=== PATIENT | female | born 1970 | race Caucasian/White ===

== ENCOUNTER 2016-04-25 13:16 | Inpatient (IN) | payer MEDICARE, MEDICAID ==
[2016-04-25] MEDS ORDERED: ASPIRIN TABLET 325 MG TAB PO ONE (13:45)
[2016-04-25] MEDS ORDERED: SODIUM CHLORIDE 0.9% (FLUSH) 10 ML SYG IV PRN ×2 (13:45→16:57)
--- NOTE | 2016-04-25 15:24 | CT ---
Study: CT of the Head. Indication: Transient level of consciousness. Technique: Axial CT images of the head were acquired without intravenous contrast. Comparison: None. Findings: Examination is mildly motion degraded. No CT evidence of acute ischemia, acute hemorrhage, mass, mass effect, midline shift, or extra-axial fluid collection. Ventricles are normal in configuration without hydrocephalus. Slightly age advanced global parenchymal volume loss noted. Paranasal sinuses are adequately aerated. Mastoid air cells are adequately aerated. Osseous structures and soft tissues are unremarkable. Impression: 1. No CT evidence of acute intracranial abnormality. 2. Slight age advanced global parenchymal volume loss. 3. Mild motion degradation. Electronically signed by: Blayne Cooney MD 04/25/2016 15:22
--- NOTE | 2016-04-25 15:24 | RAD ---
Study: Single Frontal View of the Chest. Indication:Transient level of consciousness Comparison: May 07, 2015. Findings: Heart size normal. Lungs clear. No acute osseous abnormality. Electronically signed by: Blayne Cooney MD 04/25/2016 15:23
--- NOTE | 2016-04-25 16:05 | ED.PDOC ---
History of Present Illness - General Chief Complaint: Neuro Symptoms/Deficits Stated Complaint: ALTERED MENTAL STATUS Time Seen by Provider: 04/25/16 13:44 Source: other - EMPLOYEE AT PTS JOB Exam Limitations: other - UNINTELIGIBLE SPEECH Additional Information: PT WAS SENT TO ED FOR EVALUATION FROM HER PLACE OF WORK AT [employer]. PT WAS FOUND TO BE ALTERED ACCORDING TO WHO CALLED PRIOR TO PTS ARRIVAL. PT REPORTEDLY HAD A FACIAL DROOP AND DECREASED SUPERVISOR FIBER LOCKING ON RIGHT. CO-WORKER STATES THAT PT HAS EXHIBITED SIMILAR SYMPTOMS IN THE PAST WHEN [place]KOTE LEVELS FOR ABNORMAL. PT IS UNABLE TO GIVE ANY RELIABLE INFO REGARDING HPI - History of Present Illness Timing/Duration: unsure Severity: mild Improving Factors: nothing Worsening Factors: nothing Associated Symptoms: denies symptoms Allergies/Adverse Reactions: Allergies Azithromycin [From Zithromax] Allergy (Verified 09/26/14 16:38) Cephalexin [From Keflex] Allergy (Verified 09/26/14 16:38) Ciprofloxacin [From Cipro] Allergy (Verified 09/26/14 16:38) Ketorolac Allergy (Verified 09/26/14 16:38) Nalbuphine Allergy (Verified 09/26/14 16:38) Penicillins Allergy (Verified 08/05/15 18:07) Zebulon Allergy (Verified 09/26/14 16:38) Sulfamethoxazole w/Trimethoprim [From Bactrim] Allergy (Verified 09/26/14 16:38) Home Medications: Ambulatory Orders Butorphanol Tartrate Inj [Stadol Inj] 2 mg IM .2 PER WEEK ONLY PRN 08/05/15 Levothyroxine Sodium [Synthroid] 50 mcg PO DAILY 08/05/15 Lorazepam [Ativan] 0.5 mg PO BID PRN 08/05/15 Multiple Vitamins W/ Minerals [Multivital] 1 tab PO DAILY 08/05/15 Polyethylene Glycol 3350 [Miralax] 17 gm PO DAILY PRN 08/05/15 Promethazine HCl Inj [Phenergan Inj] 25 mg IM Q6H PRN 08/05/15 Topiramate [Topamax] 200 mg PO BID 08/05/15 Trazodone HCl 100 mg PO BEDTIME PRN 08/05/15 tiZANidine [Zanaflex] 4 mg PO Q6H PRN 08/05/15 Divalproex Sodium ER [Depakote ER] 2 ea PO BEDTIME 01/01/16 Estropipate 0.75 mg PO DAILY 01/01/16 Gabapentin 100 mg PO TID 01/01/16 Ondansetron HCl 4 mg PO Q6H PRN 01/01/16 Quetiapine Fumarate [Seroquel] 300 mg PO BEDTIME 01/01/16 Sennosides [Senokot] 8.6 mg PO BID PRN 01/01/16 Acetaminophen [Pain Relief Extra Strengt] 1,000 mg PO Q6H PRN 04/25/16 Alum & Mag Hydrox-Simethicone [Mayelin-Lanta] 30 ml PO DAILY PRN 04/25/16 Edplvsmqzo-Kicpgjershhhy-Zgwrn [Fioricet] 1 cap PO Q6H PRN 04/25/16 Dextromethorphan-Guaifenesin [Mayelin-Tussin Dm] 10 ml PO Q4H PRN 04/25/16 Docusate Sodium 200 mg PO DAILY 04/25/16 Mccormick-3 Fatty Acids [Fish Oil] 3,000 mg PO DAILY 04/25/16 Tramadol HCl 1 - 2 mg PO TID PRN 04/25/16 Review of Systems - Review of Systems Constitutional: States: see HPI EENTM: States: see HPI Respiratory: States: see HPI Cardiology: States: see HPI Gastrointestinal/Abdominal: States: see HPI Genitourinary: States: see HPI Musculoskeletal: States: see HPI Skin: States: see HPI Neurological: States: see HPI Endocrine: States: see HPI Hematologic/Lymphatic: States: see HPI Past Medical History (General) - Patient Medical History Hx Seizures: Yes - Takes Depakote for Seizures Hx Stroke: No Hx Dementia: No Hx Asthma: No Hx of COPD: No Hx Cardiac Disorders: No Hx Congestive Heart Failure: No Hx Pacemaker: No Hx Hypertension: No Hx Thyroid Disease: Yes Hx Diabetes: No Hx Gastroesophageal Reflux: No Hx Renal Disease: No Hx Cancer: No Hx of HIV: No Hx Hepatitis C: No Hx MRSA: No - Vaccination History Hx Tetanus, Diphtheria Vaccination: Yes Hx Influenza Vaccination: Yes Hx Pneumococcal Vaccination: Yes Immunizations Up to Date: Yes Immunizations Comment: Patient resides in a [facility] - Immunizations are up to date - Social History Hx Tobacco Use: No Hx Chewing Tobacco Use: No Hx Alcohol Use: No Hx Substance Use: No Hx Substance Use Treatment: No Hx Depression: Yes Feels Threatened In Home Enviroment: No Feels Threatened In a Relationship: No Hx Physical Abuse: No Hx Emotional Abuse: No Hx Suspected Abuse: No - Activities of Daily Living [facility]isted Living (if applicable):: [facility] Agency (if applicable):: None - Female History Patient is a Female of Child Bearing Age (10 -59 yrs old): Yes - Patient resides in skilled nursing care facility Patient : No - Triage Comment ED Triage Comment: Patient is a poor historian. The telephone report from the custodial was: "The last time she acted this way, her depakote levels were off". Family Medical History - Family History Mother Family History: Unknown Living Status: Physical Exam - Physical Exam General Appearance: Alert, No apparent distress, Well Groomed, Well Hydrated Ears, Nose, Throat: normal ENT inspection Neck: non-tender, full range of motion Respiratory: lungs clear, normal breath sounds Cardiovascular/Chest: regular rate, rhythm, no murmur Gastrointestinal/Abdominal: non tender, soft Back Exam: normal inspection Neurologic: no motor/sensory deficits, alert, other - SPEECH IS GARBLED AND UNINTELIGIBLE Skin Exam: normal color, warm/dry Progress - Progress Progress: 04/25/16 16:07 PT REMAINS RESTING COMFORTABLY NO CHANGE IN NEUROLOGIC FINDINGS. CK 6500 WILL ADMIT FOR RHABDOMYOLYSIS. - Results/Orders Results/Orders: Laboratory Tests 04/25/16 04/25/16 04/25/16 13:49 14:00 14:50 WBC 5.5 RBC 3.80 L Hgb 12.7 Hct 38.6 MCV 101.8 H MCH 33.4 H MCHC 32.9 L RDW 13.8 Plt Count 74 L MPV 7.4 Absolute Neuts (auto) 2.60 Absolute Lymphs (auto) 2.20 Absolute Monos (auto) 0.70 Absolute Eos (auto) 0.00 Absolute Basos (auto) 0.00 Neutrophils % 46.6 Lymphocytes % 40.5 Monocytes % 12.1 H Eosinophils % 0.5 L Basophils % 0.3 PT 13.2 H INR 1.180 PTT (SP) 33.7 Sodium 138 Potassium 3.9 Chloride 110 Carbon Dioxide 23 Anion Gap 8.9 L BUN 31 H Creatinine 1.11 BUN/Creatinine Ratio 27.9 H POC Glucose 65 L Random Glucose 75 Serum Osmolality 280.9 Calcium 8.7 Total Bilirubin 0.4 AST 111 H ALT 51 Alkaline Phosphatase 55 Creatine Kinase 6493 H* CK-MB (CK-2) 105.1 H* CK-MB (CK-2) % 1.62 Troponin I < 0.02 Serum Total Protein 6.0 L Albumin 2.9 L Globulin 3.1 Albumin/Globulin Ratio 0.9 L Urine Color Dk yellow H Urine Appearance Clear Urine pH 6.0 Ur Specific [place] >= 1.030 Urine Protein Trace Urine Glucose (UA) Negative Urine Ketones Negative Urine Blood Moderate H Urine Nitrite Negative Urine Bilirubin Negative Urine Urobilinogen 1.0 Ur Leukocyte Esterase Negative Urine RBC 1-3 Urine WBC 1-3 Ur Epithelial Cells 10-20 Urine Bacteria 2+ H Urine Mucus Small Salicylates < 4.0 Urine Opiates Screen Negative Acetaminophen < 10.0 L Urine Barbiturates Negative Valproic Acid 90.1 Ur Phencyclidine Scrn Negative U Amphetamin/Meth Scrn Negative U Benzodiazepines Scrn Positive H U Cocaine Metab Screen Negative U Cannabinoids Screen Negative Ethyl Alcohol 0.00 - EKG/XRAY/CT EKG: Sinus Comments: [place] 110MS, NL AXIS, T WAVE INVERSIONS IN INFERIOR/LATERAL LEADS, NO OLD EKG Departure - Departure Clinical Impression: Acute confusional state, Rhabdomyolysis Time of Disposition: 16:11 Disposition: Admit Patient Condition: Fair Departure Forms: ED Discharge - Pt. Copy, Patient Portal Self Enrollment Home Medications: Ambulatory Orders Butorphanol Tartrate Inj [Stadol Inj] 2 mg IM .2 PER WEEK ONLY PRN 08/05/15 Levothyroxine Sodium [Synthroid] 50 mcg PO DAILY 08/05/15 Lorazepam [Ativan] 0.5 mg PO BID PRN 08/05/15 Multiple Vitamins W/ Minerals [Multivital] 1 tab PO DAILY 08/05/15 Polyethylene Glycol 3350 [Miralax] 17 gm PO DAILY PRN 08/05/15 Promethazine HCl Inj [Phenergan Inj] 25 mg IM Q6H PRN 08/05/15 Topiramate [Topamax] 200 mg PO BID 08/05/15 Trazodone HCl 100 mg PO BEDTIME PRN 08/05/15 tiZANidine [Zanaflex] 4 mg PO Q6H PRN 08/05/15 Divalproex Sodium ER [Depakote ER] 2 ea PO BEDTIME 01/01/16 Estropipate 0.75 mg PO DAILY 01/01/16 Gabapentin 100 mg PO TID 01/01/16 Ondansetron HCl 4 mg PO Q6H PRN 01/01/16 Quetiapine Fumarate [Seroquel] 300 mg PO BEDTIME 01/01/16 Sennosides [Senokot] 8.6 mg PO BID PRN 01/01/16 Acetaminophen [Pain Relief Extra Strengt] 1,000 mg PO Q6H PRN 04/25/16 Alum & Mag Hydrox-Simethicone [Mayelin-Lanta] 30 ml PO DAILY PRN 04/25/16 Ikwifnfnnt-Ubsglbqxgsylm-Pbwow [Fioricet] 1 cap PO Q6H PRN 04/25/16 Dextromethorphan-Guaifenesin [Mayelin-Tussin Dm] 10 ml PO Q4H PRN 04/25/16 Docusate Sodium 200 mg PO DAILY 04/25/16 Mccormick-3 Fatty Acids [Fish Oil] 3,000 mg PO DAILY 04/25/16 Tramadol HCl 1 - 2 mg PO TID PRN 04/25/16 Decision To Admit - Decistion To Admit Decision to Admit Reason: Admit from ER Decision to Admit Date: 04/25/16 - CASE DISCUSSED WITH MIGUEL RIVAS WHO AGREES TO ADMIT PT. Decision to Admit Time: 16:11
--- NOTE | 2016-04-25 16:45 | HP ---
SUPERVISING PHYSICIAN: Nino Guzman M.D. CHIEF COMPLAINT: Altered mental status. HISTORY OF PRESENT ILLNESS: Ms. Rowland is a 45 year-old female patient resident of [facility], [place]. It was reported the patient was found to be altered according to the facility personnel that called the hospital in regards to the patient's arrival to the Emergency Department. Per E. R. 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 Co-workers stated that the patient has exhibited similar symptoms in the past when her Depakote levels were abnormal. In the Emergency Department , the patient was unable to give any reliable information regarding her current history of illness and was found to be without any significant neuromotor deficits, only notable finding was unintelligible speech. Laboratory studies were completed. Findings indicated that she had elevated CPK of 6493, troponin was less than 0.02. AST was also elevated at 11. TSH was normal at 1.39. The patient does have a history of manic depressive disorder and has previously been on [place]. It is unsure at this point if the patient is currently on [place], however in the past she has had issues with elevated [place] levels. A Depakote level performed in the Emergency Department showed to be within normal limits at 90. Urine drug screen showed negative for all substances tested other than Benzodiazepine which the patient has scheduled in her home medication list. Ethyl alcohol was zero. CT of the head was performed and per radiology interpretation there was no CT evidence of acute intracranial abnormalities, just slight advanced age global parenchymal volume loss. A chest x-ray was also completed and per radiology interpretation showed no abnormalities. Dr. Brasher, E. R. physician, requested the patient be admitted for possible Rhabdomyolysis taking into account that she had elevated CPK for unknown reasons at this time and a history of manic depressive disorders with problems with [place] levels as well as Depakote. There was no evidence of an acute stroke on admission to the E. R. other than a change in speech, however per hospital personnel who has previously seen the patient, her speech pattern is essentially close to her baseline. She was admitted in stable condition to the Medical/Surgical floor. PAST MEDICAL HISTORY: 1. Manic depressive disorder. PAST SURGICAL HISTORY: 1. Cholecystectomy. 2. Hernia repair. 3. Hysterectomy. CURRENT MEDICATIONS: Please refer to updated list of home medications as verified in the electronic medical record from the senior care. ALLERGIES: AZITHROMYCIN, CEPHALEXIN, CIPROFLOXACIN, KETOROLAC, NALBUPHINE, PENICILLIN, STRAWBERRIES AND BACTRIM. FAMILY HISTORY: Unremarkable. SOCIAL HISTORY: The patient is a resident of [facility]. She has never smoked. Denies any alcohol per her medical record review and was previously a homemaker. REVIEW OF SYSTEMS: Overall limited secondary to the patient's unintelligible speech. Please refer to History of Present Illness for detail in regards to current History of Present Illness. PHYSICAL EXAMINATION: VITAL SIGNS: Temperature 98.0, pulse 73, blood pressure 106/71, respirations 16 , O2 sat 94% on room air. Admission weight 44.4 kg. GENERAL: The patient is alert. Appears to be in no distress. She is well groomed and well hydrated. She is unable to communicate her current location and answers questions with very difficult comprehensible speech. HEENT: Tympanic membranes are clear bilaterally. Oropharynx is pink with dry mucosal membranes. There are no lesions noted. NECK: No jugular venous distention. CHEST: Lungs are clear to auscultation bilaterally without any appreciable rhonchi, wheezing or rales. CARDIOVASCULAR: Regular rate and rhythm without appreciable murmurs, gallops, or rubs. ABDOMEN: Soft, non-tender. Positive bowel sounds. EXTREMITIES: No clubbing, cyanosis or edema. NEUROLOGIC: Cranial nerves II-XII are grossly intact. Facial features are symmetrical. Extraocular movements are within normal limits. There is no nystagmus. Her speech is garbled and unintelligible at times, but there is no obvious motor or sensory deficits and she is alert. LABORATORY: White count 5.5, hemoglobin 12.7, hematocrit 38.6, platelet count 74,000. Differential shows to be within normal limits. Coagulation studies show PT 13.2, INR 1.18, PTT 33.7. Chemistries show normal electrolytes with potassium 3.9, BUN 31, creatinine 1.11, glucose 75, calcium 8.7. Liver functions show to be within normal limits except for an elevated AST of 111. CPK was elevated at 6493, troponin was less than 0.02, TSH was 1.39. Urine collected in the Emergency Department showed to be dark yellow with a specific gravity greater than 1.030 with a moderate amount of blood on dipstick, otherwise within normal limits. Microscopic exam revealed 1 to 3 RBCs, 1 to 3 WBCs, 10 to 20 epithelials with 2+ bacteria and small amount of mucous. Salicylate level was less than 4.0, Acetaminophen was less than 10.0. Valproic acid was 90. Urine drug screen showed positive for Benzodiazepine, however the patient is on scheduled Benzodiazepines. Ethyl alcohol was zero. MICROBIOLOGY: Urine culture is pending. RADIOLOGY: CT of the head per radiology interpretation showed no CT evidence of acute intracranial abnormalities. Of note was slightly age advanced global parenchymal volume loss. Chest x-ray showed to be without any acute cardiopulmonary findings. ASSESSMENT: 1. Reported altered mental status prior to arrival with no significant neurological findings with the patient having garbled speech which per personnel is near her baseline. 2. Elevated CPK, unknown etiology, possibly secondary to dehydration versus medication induced with the patient having a history of previously being on [place]. 3. Moderate dehydration. 4. Thrombocytopenia. 5. History of manic depressive disorder. 6. Elevated AST, unknown etiology. Likely secondary to medication regimen. PLAN: The patient will be admitted for further treatment and evaluation. She will have every hour neurologic checks per protocol to be continued every 4 hours after admission with close observation. She will be started on some IV fluids to assist with dehydration. Hon[place] levels are pending at this time. Will await those results, however review of her medication showed the patient appeared to be not on [place] at this time. Urine culture is pending, possibly concerning for underlying urinary tract infection, but given her allergies will hold off on antibiotic therapy until we have the culture and sensitivity back. Given her platelet count, will hold off on Lovenox until we can repeat CBC in the morning. Estimated length of stay to be 2 to 3 days pending clinical reevaluation and repeat laboratory studies. Until then, will continue to monitor the patient closely and treat appropriately. #[id number] [facility]
[2016-04-25] MEDS ORDERED: IV SET AND CAP CHANGE INJ INJ SCH (17:00)
[2016-04-25] MEDS: KCL 20MEQ/0.45% NS 1,000 ML IVS PRN ×2 (17:44→22:49)
[2016-04-25] MEDS ORDERED: DIVALPROEX SODIUM ER 500 MG TAB PO SCH (21:00)
[2016-04-25] MEDS ORDERED: NON-FORMULARY MEDICATION 1 EA MIS (Quetiapine Fumarate [Seroquel] 300 MG) PO SCH (21:00)
[2016-04-25] MEDS ORDERED: NON-FORMULARY MEDICATION 1 EA MIS (Topiramate [Topamax] 200 MG) PO SCH (22:15)
--- NOTE | 2016-04-25 22:17 | PCM.CORE ---
Physician DVT/VTE - Nurse DVT Assessment & Total Each Risk Factor Represents 1 Point: Age 41-60 DVT Assessment Score: 1 - 0-1 Low Risk Treatments: Early Ambulation, Low Risk no further treatment or intervention needed
[2016-04-25] MEDS ORDERED: QUEtiapine FUMARATE 100 MG TAB ONE (22:44)
[2016-04-25] MEDS ORDERED: TOPIRAMATE 25 MG TAB ONE (22:45)
[2016-04-26] MEDS: KCL 20MEQ/0.45% NS 1,000 ML IVS PRN ×2 (03:00→06:52)
[2016-04-26] MEDS ORDERED: LEVOTHYROXINE SODIUM 0.025 MG TAB ONE (07:39)
[2016-04-26] MEDS ORDERED: ESTROPIPATE 1.5 MG PO ONE (07:39)
[2016-04-26] MEDS ORDERED: TOPIRAMATE 25 MG TAB ONE (07:39)
[2016-04-26] MEDS: LEVOTHYROXINE SODIUM 0.025 MG TAB PO SCH (08:56)
[2016-04-26] MEDS: ESTROPIPATE 1.5 MG PO SCH (08:56)
[2016-04-26] MEDS: TOPIRAMATE 25 MG TAB PO SCH ×2 (08:57→20:53)
[2016-04-26] MEDS: DOCUSATE SODIUM 100 MG CAP PO SCH (08:57)
[2016-04-26] MEDS: SODIUM CHLORIDE 0.9% (FLUSH) 10 ML SYG IV SCH ×2 (08:58→20:52)
--- NOTE | 2016-04-26 09:57 | CT ---
EXAM DESCRIPTION: CT ABDOMEN PELVIS WITH IV CONTRAST CLINICAL HISTORY: Abdominal pain. Elevated liver function tests. COMPARISON: None. TECHNIQUE: Contrast enhanced spiral CT with intravenous iodinated nonionic contrast. Coronal and sagittal reformatted images FINDINGS: No diagnostic focal hepatic parenchymal abnormality or mass lesion. Previous cholecystectomy. No biliary filling defect. Mildly prominent duct status post cholecystectomy. No pancreatic duct abnormality. No pancreas parenchymal abnormality Spleen, adrenal glands and kidneys are normal Visualized lung bases are clear. Heart size is normal Moderate amount of stool throughout the colon consistent with constipation. No mass lesion or diagnostic acute inflammatory process seen in the stomach, small or large intestine Omentum, mesentery and retroperitoneum are unremarkable Patient has had a hysterectomy. Ovaries not seen. No pelvic mass lesion. There is a small amount of free intraperitoneal fluid in the pelvis. In addition, there is edema/small amount of fluid in the presacral extraperitoneal space. Etiology unclear. No diagnostic bony abnormality of the sacrum or coccyx. No filling defect in the urinary bladder. No acute bony abnormality IMPRESSION: Small volume free intraperitoneal fluid in the pelvis. There is also presacral edema/ fluid both of which indeterminate etiology. No pelvic mass lesion or adenopathy Constipation Etiology of elevated liver function test not seen. No diagnostic hepatic parenchymal abnormality or mass lesion. Previous cholecystectomy with expected mildly prominent biliary duct Electronically signed by: Mike Viera MD 04/26/2016 09:55
--- NOTE | 2016-04-26 20:20 | PN ---
DATE: 04/26/16 SUPERVISING PHYSICIAN: Nino Guzman M.D. SUBJECTIVE: The patient is doing much better this morning. Her speech is clearer. She is alert and oriented. She does complain of some suprapubic discomfort needing to urinate. She has been well hydrated and is taking adequate p.o. fluids as well as diet, therefore will hep-lock her today. She remains afebrile and has had no nausea or vomiting or diarrhea. OBJECTIVE: VITAL SIGNS: Temperature 98.3, pulse 78, blood pressure 102/58, respirations 18, O2 sat showing 97% on room air at rest. GENERAL: The patient is alert and oriented this morning with much more intelligible speech and feeling better. CHEST: Lungs are clear to auscultation bilaterally. HEART: Regular rate and rhythm. ABDOMEN: Soft with some tenderness noted in the suprapubic area. EXTREMITIES: No clubbing, cyanosis or edema. NEUROLOGIC: She is alert and oriented this morning with much more improved speech pattern and feels she is less confused than at time of admission. LABORATORY: White count remains normal at 5, hemoglobin 10.8, hematocrit 32.5, platelet count continues to show decrease at 65,000. Differential shows 1+ variant lymphs, normal RBC morphology with normal differential count. Chemistries today show normal electrolytes with 4.2 potassium, mildly elevated chloride, carbon dioxide today was 17, anion gap remains low at 7.2, BUN 24, creatinine 0.94 which is improved from admission, glucose 70, serum osmolality 272, calcium 7.8. Total bilirubin 0.5, AST is elevated at 131 as well as ALT is now elevated at 61, alkaline phosphatase remains within normal limits. CPK this morning is down to 3602 from admission of 6493, TSH was normal at 1.39. [place]a level is pending. Urine culture is pending. RADIOLOGY: Plan to get a complete abdominal/pelvic CT given the increasing liver functions and some suprapubic discomfort, and per radiology interpretation there was a small volume of free intraperitoneal fluid in the pelvis. There is some presacral edema/fluid both indeterminate etiology with no pelvic masses or lymphadenopathy or adenopathy. There was note of constipation but no etiology of elevated liver functions seen on exam as well as no diagnostic hepatic parenchymal abnormalities or mass lesions, and a previous cholecystectomy with mildly prominent bile duct is noted. ASSESSMENT: 1. Altered mental status prior to arrival with no significant neurological findings with the patient just having some garbled speech which appears to be normal for her at times as per spouse showing improvement today after holding Depakote. 2. Elevated CPK as well as elevated liver functions possibly secondary to Depakote with some degree felt to be contributed from Seroquel and with the patient having previously been on [place]lea with Overlea levels pending. 3. Moderate dehydration, resolved after IV fluids. 4. Thrombocytopenia likely secondary to worsening liver function. 5. History of manic depressive disorder on Seroquel and Depakote. 6. Elevated AST. 7. Possible urinary tract infection pending final urine cultures. PLAN: The patient is showing improvement in regards to the mental status change prior to arrival, however she continues to have elevated liver function tests. I have reviewed her medication list and it shows the patient on Depakote. I attempted to contact her psychiatric provider, Dr. Balderas. After speaking to Dr. Balderas, the patient had been dismissed from his practice and was being followed by Dr. Martinez in [place] through the [facility] facilities in [place]. I will plan to hold her Depakote tonight with concerns that her liver function is worsening secondary to the Depakote, and again try to contact Dr. Martinez to help in regards to management of her bipolar disorder considering the patient has been previously on [place]lea and now he says liver functions are increasing with the patient on Depakote, however Depakote levels remain therapeutic. Given the degree of thrombocytopenia, will continue to hold Lovenox. The patient is encouraged to ambulate. Will continue with close monitoring neurologically and possibly anticipate discharge tomorrow back to [facility] pending further evaluation in the morning as well as guidance with the medication regimen through her psychiatric provider, Dr. Martinez. Until that point, will continue to monitor the patient closely and treat appropriately. #[id number] [facility]
[2016-04-26] MEDS ORDERED: QUEtiapine FUMARATE 100 MG TAB PO SCH (21:00)
[2016-04-27] MEDS: LEVOTHYROXINE SODIUM 0.025 MG TAB PO SCH (07:00)
[2016-04-27] MEDS: DOCUSATE SODIUM 100 MG CAP PO SCH (08:51)
[2016-04-27] MEDS: TOPIRAMATE 25 MG TAB PO SCH (08:51)
[2016-04-27] MEDS: ESTROPIPATE 1.5 MG PO SCH (08:52)
[2016-04-27] MEDS: SODIUM CHLORIDE 0.9% (FLUSH) 10 ML SYG IV SCH (08:52)
--- NOTE | 2016-04-27 09:21 | RAD ---
EXAM DESCRIPTION: X-RAY ABDOMEN, 2.0 VIEWS CLINICAL HISTORY: Constipation. COMPARISON: CT of the abdomen and pelvis done on 04/26/2016 TECHNIQUE: 2.0 views of the abdomen and pelvis. FINDINGS: There is no evidence of free air under the hemidiaphragms. There is prior cholecystectomy There is no evidence of small or large bowel obstruction, ileus or bowel wall thickening. There is moderate amount of constipation There are no radiopaque calculi in the outline of the urinary tract. The visualized lung bases are clear. IMPRESSION: Moderate amount of constipation Electronically signed by: Low Jiang MD 04/27/2016 09:18
[2016-04-27 14:31] VITALS: BP 102/60; TEMP 98.5; O2SAT 96
--- NOTE | 2016-05-05 21:36 | DS ---
SUPERVISING PHYSICIAN: Nino Guzman M.D. DISCHARGE DIAGNOSIS: 1. Altered mental status prior to arrival with no significant neurological findings with the patient having garbled speech returning to normal after holding Depakote prior to discharge felt to be secondary to possible elevated Depakote level. 2. Elevated CPK with elevated liver functions possibly secondary to Depakote with some degree felt to be contributed from Seroquel as well with the patient having previously been on [place] in the past. 3. Moderate dehydration, resolved after IV fluids. 4. Thrombocytopenia likely secondary to worsening liver function and from Depakote administration. 5. History of manic depressive disorder on Seroquel and Depakote. 6. Possible urinary tract infection on admission with final culture results showing and insignificant colony count of mixed chetan. HISTORY OF PRESENT ILLNESS: Ms. Rowland is a 45 year-old female patient, resident of [facility]. It was reported the patient was found to be altered according to the facility personnel that called the hospital in regards to the patient's arrival to the Emergency Department. Per E. R. report, the patient reportedly had a facial droop and decreased knife cutter on the right. Co-workers stated that the patient has exhibited similar symptoms in the past when her Depakote levels were abnormal. In the Emergency Department , the patient was unable to give any reliable information regarding her current history of illness and was found to be without any significant neuromotor deficits, only notable finding was unintelligible speech. Laboratory studies were completed indicating that she had an elevated CPK of 6493 with troponin less than 0.02. AST was elevated at 111. TSH was normal at 1.39. The patient does have a history of manic depressive disorder and has previously been on [place]. It was unsure at the point of admission if the patient was on [place] , however in the past she has had issues with [place] levels being elevated. A Depakote level performed in the Emergency Department showed her Depakote was within normal limits at 90. Urine drug screen showed negative for all substances tested other than Benzodiazepines which the patient has scheduled in her medication list. Ethyl alcohol was zero. CT of the head was performed and per radiology interpretation there was no CT evidence of acute intracranial abnormalities, just slight advanced age and global parenchymal volume loss. A chest x-ray was also completed and per radiology interpretation showed no abnormalities. Dr. Brasher, E. R. physician, requested the patient be admitted for possible Rhabdomyolysis taking into account that she had elevated CPK for unknown reasons at the time of admission and a history of manic depressive disorders with possible problems with either [place] or Depakote levels. There was no evidence of an acute stroke on admission to the [facility] other than a change in speech, however per residence personnel who had previously seen the patient and on admission from the [facility], her speech pattern was essentially close to her baseline. She was admitted for further treatment and evaluation to the Medical/Surgical floor. LABORATORY: White count on admission was 5.5, at discharge 4.2. Hemoglobin and hematocrit were stable and at discharge were 11.5 and 34.9. Platelet count was decreased on admission at 74 and shown to stabilize at 65,000. At discharge , differential showed to be within normal limits. Coagulation studies showed a mildly elevated PT of 13.2, otherwise PTT was normal. Chemistries showed initial electrolytes to be within normal limits with potassium 3.9, BUN 31, creatinine 1.11, glucose initially was 75, AST was 111, ALT was 51. CPK was 60.93, troponin was less than 0.02. At time of discharge, her electrolytes showed just a mildly elevated chloride of 115, otherwise were within normal limits. BUN 23, creatinine 1.1. Liver functions continued to show elevation of the AST and ALT with AST at discharge of 155, ALT 95. CPK, however, had shown improvement and at time of discharge was 1251. Ammonia level was 20 being normal. Urine showed a moderate amount of blood on the dipstick with microscopic revealing 1 to 3 RBCs, 1 to 3 WBCs, 10 to 20 epithelials, 2+ bacteria and small amount of mucous. Toxicology screen showed Acetaminophen less than 10, salicylate less than 4.0. Urine drug screen did show positive for Benzodiazepines, otherwise all other substances were negative. Valproic acid additionally was 90.1 on admission and at discharge after holding Depakote was 17.1. Her Ethyl alcohol was 0.0. Serology did show nonreactive for hepatitis A, B and C. MICROBIOLOGY: Urine culture showed insignificant normal chetan. RADIOLOGY: Chest x-ray in the Emergency Department per radiology interpretation showed lungs to be clear. CT of the head showed per radiology interpretation no CT evidence of acute intracranial abnormalities, only slight age advanced global parenchymal volume loss. She also had an abdominal/pelvic CT after admission with contrast for further evaluation of her liver function tests that were elevated and per radiology interpretation showed small volume of free intraperitoneal fluid within the pelvis with no pelvic lesions or adenopathies. There was note of constipation with a previous cholecystectomy with expected mildly prominent biliary duct. Please refer to final report for full details. HOSPITAL COURSE: Ms. Rowland was admitted from the . to the Medical/ Surgical floor on 04/25/16 as noted in her History of Present Illness. Initially felt to have possible stroke-like symptoms, however these resolved prior to admission. It was noted that she did have a normal Depakote level but had elevated liver enzymes as well as elevated CPK which was felt to be possibly secondary to Depakote. Her Depakote was held as well as Seroquel and the patient did show improvement in her symptoms as far as her speech, and at time of discharge she was back to normal baseline. Liver functions continued to show some elevation. She remained stable and was felt clinically stable enough to be discharged to followup with her primary care physician in the outpatient setting. PLAN: The patient was discharged on 04/27/16 to have close clinical followup with Dr. Leong. She was returned back to [facility] by facility transport van. She was to resume all of her medications as directed per the [facility] except hold Depakote and Seroquel until she could see either Dr. Martinez or Dr. Leong in regards to Depakote levels and worsening liver enzymes, and a decrease in absolute neutrophil count and platelet count. [facility] staff were instructed to call Dr. Martinez or Dr. Leong on Friday after discharge and to return to the hospital if the patient was showing any decline or other symptoms. She was discharged in stable condition with no new medications, only to hole the Depakote and Seroquel. #[id number] [facility]
== END 2016-04-27 14:30 | DRG 641 ==
LOC: ER 13:16 → MS 16:44
PROVIDERS: ADMIT Nurse Practitioner Family; ATTEND Nurse Practitioner Family
PROC: BW21YZZ Computerized Tomography (CT Scan) of Abdomen and Pelvis using Other Contrast (ICD-10-PCS; principal; 2016-04-26)
DX: E86.0 Dehydration (principal); M62.82 Rhabdomyolysis; N39.0 Urinary tract infection, site not specified; R47.89 Other speech disturbances; R74.8 Abnormal levels of other serum enzymes; D69.6 Thrombocytopenia, unspecified; F31.9 Bipolar disorder, unspecified; R56.9 Unspecified convulsions; T42.6X5A Adverse effect of other antiepileptic and sedative-hypnotic drugs, initial encounter; T43.595A Adverse effect of other antipsychotics and neuroleptics, initial encounter; Y92.009 Unspecified place in unspecified non-institutional (private) residence as the place of occurrence of the external cause; Z88.0 Allergy status to penicillin; Z88.1 Allergy status to other antibiotic agents; Z88.8 Allergy status to other drugs, medicaments and biological substances; Z79.899 Other long term (current) drug therapy; R29.810 Facial weakness

== ENCOUNTER → 2016-11-14 | Outpatient (CLI) | payer MEDICARE, MEDICAID ==
--- NOTE | 2016-11-17 19:29 | US ---
EXAM DESCRIPTION: Soft Tissue,Extremity CLINICAL HISTORY: LEFT INGUINAL HERNIA lower abdominal pain. COMPARISON: None. TECHNIQUE: 2-D sonography. FINDINGS: Sonographic evaluation of the left groin and right groin regions reveals no evidence of a hernia. No mass is detected. IMPRESSION: No sonographic evidence of a hernia is detected. Electronically signed by: Tank Kinsey MD 11/17/2016 7:28 PM CDT Workstation: [id number]
== END | disposition home or self-care (01) ==
LOC: US 09:37
PROVIDERS: ATTEND Surgery
DX: K40.90 Unilateral inguinal hernia, without obstruction or gangrene, not specified as recurrent (principal)

== ENCOUNTER → 2017-01-17 | Outpatient (CLI) | payer MEDICARE, MEDICAID ==
--- NOTE | 2017-01-18 08:20 | CT ---
PROCEDURE: Abdoment/Pelvis w/o Contrast HISTORY: ABD PAIN Indication: Same as above Comparison: 04/26/2016 Technique: CT of the abdomen and pelvis was done without intravenous contrast. Images were obtained from the lung base to the level of the pubic symphysis in axial plane, followed by orthogonal sagittal and coronal reconstruction. Oral contrast was also given for the study. This exam was performed according to our departmental dose-optimization program, which includes automated exposure control, adjustment of the mA and/or KV according to the patient's size and/or use of iterative reconstruction technique. FINDINGS: Images through the lung bases do not show any focal infiltrates or pleural effusions. The pancreas, spleen and the bilateral adrenal glands appear unremarkable, given the limitation of lack of intravenous contrast. There is prior cholecystectomy and mild postcholecystectomy prominence of the common duct and the intrahepatic biliary tree The bilateral kidneys do not show any evidence of hydronephrosis or nephrolithiasis. The bilateral ureters and the bilateral periureteral soft tissues and fat planes are unremarkable. The urinary bladder is unremarkable, without any evidence of wall thickening, calculi or filling defects. The small bowel appears unremarkable, without any evidence of small bowel obstruction or bowel wall thickening. The cecum is low-lying in the right side of the pelvis. The appendix is not visualized There is no CT evidence of pericecal inflammatory change or ileocecal mesenteric adenitis. The ileocecal junction appears unremarkable. There is no CT evidence of acute colonic diverticulitis or colitis or large bowel obstruction. Note is again made of moderate amount of constipation There is no pathological lymphadenopathy in the retroperitoneum or in the pelvic region. There is no evidence of free fluid or free air in the abdomen or the pelvic region. There is no clinically significant abdominal aortic aneurysm. There is no clinically significant inguinal or ventral hernia. There is prior hysterectomy The visualized lumbar spine is unremarkable. The paravertebral soft tissues are unremarkable. The remainder of the pelvic structures are unremarkable. IMPRESSION: There are no significant findings on the current study. Incidental note is made of moderate amount of constipation Electronically signed by: Low Jiang MD 01/18/2017 8:19 AM CDT Workstation: [id number]
== END | disposition home or self-care (01) ==
LOC: CT 15:17
PROVIDERS: ATTEND Internal Medicine
DX: R10.9 Unspecified abdominal pain (principal)

== ENCOUNTER → 2017-03-05 | Outpatient (CLI) | payer MEDICARE, MEDICAID ==
--- NOTE | 2017-03-07 11:13 | MAM ---
EXAM DESCRIPTION: 3D Diagnostic, Bilateral: Digital Mammography CLINICAL HISTORY: 46 yearsFemale6 MONTH F/U . No complaints. No family history of breast cancer. Hysterectomy. Currently on HRT. COMPARISON: Diagnostic 2-D digital left mammogram 12/21/2015. Bilateral 2-D digital screening mammography 12/06/2015. Bilateral 2-D digital diagnostic mammogram 07/28/2014.. Report from prior examination also reviewed. TECHNIQUE: Bilateral CC LM MLO projection full-field images, 3-D tomosynthesis digital mammographic technique. Also bilateral synthesized CC MLO LM full-field images. Exaggerated left breast 2-D craniocaudal images. CAD on 2-D images. FINDINGS: The breast parenchymal density pattern is: Heterogeneously dense breast tissue, which may obscure small masses. No skin thickening or nipple retraction group of calcifications in the inferior posterior left breast at the 6:00 position no longer visualized. No focal, stellate mass or density, focal asymmetry , and no suspicious microcalcifications bilaterally. IMPRESSION: BI-RADS CATEGORY: 2 - BENIGN FINDINGS. FOLLOW UP: Routine digital bilateral screening, one year interval from February 2017. Written communication explaining the IMPRESSION and follow-up, will be mailed to the patient and referring health care provider. According to the [employer], yearly mammograms are recommended starting at age 40 and continuing as long as a woman is in good health. Any breast change noted on a breast self-exam should be reported promptly to the patient's healthcare provider. Breast MRI is recommended for women with an approximately 20-25% or greater lifetime risk of breast cancer, including women with a strong family history of breast or ovarian cancer and women who have been treated for Hodgkin's disease. A negative mammographic report should not delay tissue diagnosis in patients with significant clinical history or physical findings. Extremely dense breast tissue limits the sensitivity of digital mammography. Electronically signed by: Sridhar Paige MD 03/07/2017 11:06 AM [employer]
== END | disposition home or self-care (01) ==
LOC: MAMMO 10:33
PROVIDERS: ATTEND Family Medicine
DX: R92.8 Other abnormal and inconclusive findings on diagnostic imaging of breast (principal)
CPT/HCPCS: G0204; G0279

== ENCOUNTER → 2017-04-02 | Outpatient (CLI) | payer MEDICARE, MEDICAID ==
--- NOTE | 2017-04-04 00:59 | US ---
Procedure: US PELVIS Exam Date: 04/02/2017 Ordering Provider: PHUONG SRINIVASAN Clinical Indication: PELVIC AND PERINEAL PN Comparison: 01/17/2017 CT abdomen pelvis Technique: Transabdominal ultrasound of the pelvis was obtained. Findings: Prior hysterectomy. Prior left oophorectomy. The right ovary measures 1.9 x 1.6 x 1.1 cm . There are no suspicious solid or cystic masses. There is a 1.1 cm cyst with thin septation for which no follow-up imaging is recommended. No evidence of ovarian torsion. No pelvic free fluid. Impression: 1. No acute findings. Electronically signed by: Orville Evans MD 04/04/2017 12:58 AM [employer]
== END ==
LOC: US 10:40
PROVIDERS: ATTEND Obstetrics & Gynecology
DX: R10.2 Pelvic and perineal pain (principal)

== ENCOUNTER 2017-05-28 05:34 | Day surgery (SDC) | payer MEDICARE, MEDICAID ==
[2017-05-28] MEDS: LACTATED RINGERS 1,000 ML ONE (08:20)
--- NOTE | 2017-05-28 09:20 | OP ---
DATE OF PROCEDURE: 05/28/17 PREPROCEDURE DIAGNOSIS: 1. Dysphagia. 2. Heartburn. POSTPROCEDURE DIAGNOSIS: 1. LA grade A esophagitis. PROCEDURE: 1. Esophagogastroduodenoscopy. SURGEON: Dillon Villalba MD COMPLICATIONS: No immediate complications. SEDATION: The patient was sedated via IV propofol. CONSENT: Prior to the procedure, risks, benefits and alternatives to the therapy were discussed with the patient. The risks included bleeding, infection , perforation and . The patient agreed to the procedure and signed a consent. PREPROCEDURE ANESTHESIA ASSESSMENT: An examination revealed no contraindication to sedation. Airway examination demonstrated a Mallampati class type 3, ASA grade assessment type 3. Throughout the procedure, the patient's blood pressure, pulse and oxygen saturation were monitored continuously. PROCEDURE: The patient was placed in the lateral decubitus position. Bite block was placed in the mouth between the teeth. The Olympus endoscope was introduced through the oropharynx, esophagus, stomach and the second portion of the duodenum. The scope was retracted and the mucosa visualized. The entirety of the exam was performed under direct visualization. Retroflexion was performed in the stomach. The patient tolerated the procedure well. FINDINGS: 1. Mild esophagitis was seen at the gastroesophageal junction. This was characterized by one mucosal break and erythema, compatible with LA grade A esophagitis. Otherwise, the exam of the esophagus was normal. No evidence of stenosis, webs, rings. 2. The stomach was unremarkable. 3. The duodenum was normal. RECOMMENDATION: 1. Return the patient home. 2. Resume previous diet. GERD lifestyle recommendations to be reinforced including small portion meals, especially at latter times of the day, weight loss, avoid caffeine intake, raising the head of the bed when laying supine, avoid spicy foods and chocolate. 4. Continue acid suppressant medication at previously prescribed dose 30 minutes before breakfast. 5. The findings were discussed with the patient. 6. Followup in my office in the next 2 to 3 weeks. #[id number] BHARAT
[2017-05-28] MEDS ORDERED: PROPOFOL 200 MG/20 ML VIAL IV ONE (10:00)
[2017-05-28] MEDS ORDERED: LIDOCAINE 1% 10 ML VIAL INJ ONE (10:00)
[2017-05-29] MEDS: ONDANSETRON INJ 4 MG/2 ML VIAL ONE (09:50)
[2017-05-29 10:36] VITALS: TEMP 97
[2017-05-29 10:38] VITALS: BP 109/69; O2SAT 96
== END 2017-05-28 10:05 | disposition home or self-care (01) ==
LOC: AMB 05:34
PROVIDERS: ATTEND Internal Medicine Gastroenterology
DX: K20.9 Esophagitis, unspecified (principal); K59.00 Constipation, unspecified; I10 Essential (primary) hypertension; K21.9 Gastro-esophageal reflux disease without esophagitis; Z88.8 Allergy status to other drugs, medicaments and biological substances; Z79.899 Other long term (current) drug therapy
CPT/HCPCS: 00731; 43235; J2405; J3490; J7120

== ENCOUNTER → 2017-08-03 | Outpatient (CLI) | payer MEDICARE, MEDICAID | LOC: GOCC 15:50 | PROVIDERS: ATTEND Family Medicine | DX: R31.9 Hematuria, unspecified (principal); R30.0 Dysuria ==

== ENCOUNTER → 2018-04-08 | Outpatient (CLI) | payer MEDICARE, MEDICAID | LOC: GOCC 16:55 | PROVIDERS: ATTEND Internal Medicine | DX: R44.3 Hallucinations, unspecified (principal); R41.82 Altered mental status, unspecified ==

== ENCOUNTER 2018-08-06 14:22 | Emergency (ER) | payer MEDICARE, MEDICAID ==
[2018-08-06] MEDS ORDERED: HYDROcodone 5MG/APAP 325MG 1 EA TAB PO ONE (16:13)
--- NOTE | 2018-08-06 17:05 | ED.PDOC ---
History of Present Illness - General Chief Complaint: Upper Extremity Injury Stated Complaint: right shoulder pain Time Seen by Provider: 08/06/18 15:13 Source: patient, RN notes reviewed, Vital Signs reviewed Exam Limitations: no limitations - History of Present Illness Initial Comments: c/o chronic right shoulder pain that is not improving. Has had x-rays that were reportedly nml. Wants more advanced imaging. No recent changes in the pain. No trauma or fever. Occurred: other - at least 2 months Pain - Upper Extremity: moderate: Shoulder, right Method of Injury: unknown Improving Factors: rest, other - tramadol not helping Worsening Factors: movement Allergies/Adverse Reactions: Allergies Azithromycin [From Zithromax] Allergy (Verified 09/26/14 16:38) Cephalexin [From Keflex] Allergy (Verified 09/26/14 16:38) Ciprofloxacin [From Cipro] Allergy (Verified 09/26/14 16:38) Ketorolac Allergy (Verified 09/26/14 16:38) Nalbuphine Allergy (Verified 09/26/14 16:38) Penicillins Allergy (Verified 08/05/15 18:07) [place] Allergy (Verified 09/26/14 16:38) Sulfamethoxazole w/Trimethoprim [From Bactrim] Allergy (Verified 09/26/14 16:38) Home Medications: Ambulatory Orders Levothyroxine Sodium [Synthroid] 50 mcg PO DAILY 08/05/15 Lorazepam [Ativan] 0.5 mg PO BID 08/05/15 Polyethylene Glycol 3350 [Miralax] 17 gm PO DAILY PRN 08/05/15 Topiramate [Topamax] 200 mg PO BID 08/05/15 tiZANidine [Zanaflex] 4 mg PO Q8H PRN 08/05/15 Gabapentin 100 mg PO DAILY 01/01/16 Docusate Sodium 200 mg PO DAILY 04/25/16 Tramadol HCl 50 mg PO Q8H PRN 04/25/16 Acetaminophen W/ Codeine [Tylenol W/ CODEINE #3] 1 ea PO Q8HRS PRN 3 Days #9 08/06/18 Benztropine Mesylate 0.5 mg PO BID 08/06/18 Conjugated Estrogens [Premarin] 0.625 mg PO QD 08/06/18 Diphenhydramine HCl [Eql Allergy Relief] 25 mg PO DAILY PRN 08/06/18 Diphenhydramine-Acetaminophen [Acetaminophen Pm Extra St 500-25 mg] 2 tab PO BEDTIME 08/06/18 Gabapentin 200 mg PO BEDTIME 08/06/18 Melatonin 10 mg PO BEDTIME 08/06/18 Meloxicam 15 mg PO DAILY 08/06/18 Metoprolol Succinate [Metoprolol Succinate ER] 25 mg PO DAILY 08/06/18 Pantoprazole Sodium 20 mg PO DAILY 08/06/18 Simvastatin 20 mg PO BEDTIME 08/06/18 Sumatriptan Succinate 6 mg SC WKLY 08/06/18 Trazodone HCl 75 mg PO BEDTIME 08/06/18 Trolamine Salicylate [Asper-Flex] 10 % TOP Q6H PRN 08/06/18 Venlafaxine HCl [Venlafaxine HCl ER] 37.5 mg PO DAILY 08/06/18 Review of Systems - Review of Systems Constitutional: States: no symptoms reported EENTM: States: no symptoms reported Respiratory: States: no symptoms reported Cardiology: States: no symptoms reported Gastrointestinal/Abdominal: States: no symptoms reported Musculoskeletal: States: see HPI Skin: States: no symptoms reported Neurological: States: no symptoms reported Past Medical History (General) - Patient Medical History Hx Seizures: No Hx Stroke: No Hx Dementia: No Hx Asthma: No Hx of COPD: No Hx Cardiac Disorders: Yes - afib Hx Congestive Heart Failure: No Hx Pacemaker: No Hx Hypertension: Yes Hx Thyroid Disease: Yes Hx Diabetes: No Hx Gastroesophageal Reflux: No Hx Renal Disease: No Hx Cancer: No Hx of HIV: No Hx Hepatitis C: No Hx MRSA: Yes MRSA Source:: Wound - Vaccination History Hx Tetanus, Diphtheria Vaccination: Yes Hx Influenza Vaccination: Yes Hx Pneumococcal Vaccination: Yes - Social History Hx Tobacco Use: No Hx Chewing Tobacco Use: No Hx Alcohol Use: No Hx Substance Use: No Hx Substance Use Treatment: No Hx Depression: Yes Hx Physical Abuse: No Hx Emotional Abuse: No Hx Suspected Abuse: No - Female History Patient : No Family Medical History - Family History Mother Family History: Unknown Living Status: Physical Exam - Physical Exam General Appearance: Alert, Comfortable, No apparent distress Neck: full range of motion, supple, normal inspection Cardiovascular/Respiratory: no respiratory distress Back Exam: normal inspection Shoulder Exam: normal inspection, no evidence of injury, limited ROM, pain, soft tissue tenderness Elbow/Forearm Exam: normal inspection, non-tender, no evidence of injury, normal ROM Wrist Exam: normal inspection, non-tender, no evidence of injury, normal ROM Neuro/Tendon: normal motor functions, no evidence tendon injury Mental Status: alert, oriented x 3 Skin Exam: normal color, warm/dry Progress - Progress Progress: 08/06/18 17:06 I suspect a rotator cuff issue. Rec. she talk to her doctor about an MRI. 08/06/18 17:07 She declines plain films. Departure - Departure Clinical Impression: Shoulder pain, right Qualifiers: Chronicity: chronic Qualified Code(s): M25.511 - Pain in right shoulder; G89.29 - Other chronic pain Time of Disposition: 17:07 Disposition: Discharge to Home or Self Care Condition: Fair Departure Forms: ED Discharge - Pt. Copy, Patient Portal Self Enrollment Instructions: Rotator Cuff Injury (DC) Referrals: DIANA HOLDEN [Primary Care Provider] - 1-2 Days Prescriptions: Acetaminophen W/ Codeine [Tylenol W/ CODEINE #3] 1 ea PO Q8HRS PRN 3 Days #9 PRN Reason: Moderate Pain Home Medications: Ambulatory Orders Levothyroxine Sodium [Synthroid] 50 mcg PO DAILY 08/05/15 Lorazepam [Ativan] 0.5 mg PO BID 08/05/15 Polyethylene Glycol 3350 [Miralax] 17 gm PO DAILY PRN 08/05/15 Topiramate [Topamax] 200 mg PO BID 08/05/15 tiZANidine [Zanaflex] 4 mg PO Q8H PRN 08/05/15 Gabapentin 100 mg PO DAILY 01/01/16 Docusate Sodium 200 mg PO DAILY 04/25/16 Tramadol HCl 50 mg PO Q8H PRN 04/25/16 Acetaminophen W/ Codeine [Tylenol W/ CODEINE #3] 1 ea PO Q8HRS PRN 3 Days #9 08/06/18 Benztropine Mesylate 0.5 mg PO BID 08/06/18 Conjugated Estrogens [Premarin] 0.625 mg PO QD 08/06/18 Diphenhydramine HCl [Eql Allergy Relief] 25 mg PO DAILY PRN 08/06/18 Diphenhydramine-Acetaminophen [Acetaminophen Pm Extra St 500-25 mg] 2 tab PO BEDTIME 08/06/18 Gabapentin 200 mg PO BEDTIME 08/06/18 Melatonin 10 mg PO BEDTIME 08/06/18 Meloxicam 15 mg PO DAILY 08/06/18 Metoprolol Succinate [Metoprolol Succinate ER] 25 mg PO DAILY 08/06/18 Pantoprazole Sodium 20 mg PO DAILY 08/06/18 Simvastatin 20 mg PO BEDTIME 08/06/18 Sumatriptan Succinate 6 mg SC WKLY 08/06/18 Trazodone HCl 75 mg PO BEDTIME 08/06/18 Trolamine Salicylate [Asper-Flex] 10 % TOP Q6H PRN 08/06/18 Venlafaxine HCl [Venlafaxine HCl ER] 37.5 mg PO DAILY 08/06/18
[2018-08-06 18:31] VITALS: BP 109/82; TEMP 96; O2SAT 95
== END 2018-08-06 18:31 ==
LOC: ER 14:22
DX: M25.511 Pain in right shoulder (principal); G89.29 Other chronic pain; F32.9 Major depressive disorder, single episode, unspecified; E07.9 Disorder of thyroid, unspecified; I10 Essential (primary) hypertension; I48.91 Unspecified atrial fibrillation; Z79.899 Other long term (current) drug therapy; Z88.1 Allergy status to other antibiotic agents; Z88.0 Allergy status to penicillin; Z88.2 Allergy status to sulfonamides

== ENCOUNTER → 2018-08-19 | Outpatient (CLI) | payer MEDICARE, MEDICAID ==
--- NOTE | 2018-08-19 15:24 | MRI ---
Study: MRI of the Right Shoulder. Indication: ROTATOR CUFF SYNDROME Technique: Multiplanar, multi sequence MRI of the right shoulder was obtained without intravenous contrast. Comparison: None Findings: Minimal AC joint osteoarthritis. Type II acromion with moderate lateral downsloping. Small-volume subacromial/subdeltoid bursal fluid. Supraspinatus and infraspinatus tendinosis without fluid-filled tear. High-grade subscapularis tendinosis noted with low-grade interstitial fissuring superiorly. Teres minor tendon intact. Grade 1 fatty infiltration rotator cuff musculature. Long head biceps tendon intact. Anterior superior sublabral foramen. High-grade tearing bicipital labral anchor and superior labrum with a 4 mm paralabral cyst at the superior glenoid rim along the lateral margin of the suprascapular notch. Minimal glenohumeral joint osteoarthritis with a small joint effusion. No acute fracture. Thickening and significant edema/inflammation inferior glenohumeral ligament which can be seen with adhesive capsulitis. Impression: Adhesive capsulitis. Supraspinatus and infraspinatus tendinosis without fluid-filled tear. High-grade subscapularis tendinosis with mild interstitial fissuring superiorly. High-grade tearing bicipital labral anchor and superior labrum with a tiny paralabral cyst. Minimal glenohumeral joint osteoarthritis with a small joint effusion. Minimal AC joint osteoarthritis. Small-volume subacromial/subdeltoid bursal fluid. Electronically signed by: Blayne Cooney MD 08/19/2018 3:21 PM CDT
== END ==
LOC: MRI 11:00
PROVIDERS: ATTEND Orthopaedic Surgery
DX: M75.101 Unspecified rotator cuff tear or rupture of right shoulder, not specified as traumatic (principal); S43.431A Superior glenoid labrum lesion of right shoulder, initial encounter; M75.01 Adhesive capsulitis of right shoulder; M75.81 Other shoulder lesions, right shoulder; M19.012 Primary osteoarthritis, left shoulder

== ENCOUNTER → 2018-12-31 | Outpatient (CLI) | payer MEDICARE, OTHER | LOC: GOCC 18:29 | PROVIDERS: ATTEND General Practice | DX: R30.0 Dysuria (principal); R41.0 Disorientation, unspecified ==